=== PATIENT | female | born 1965 | race Caucasian/White ===

== ENCOUNTER 2019-05-23 14:41 | Emergency (ER) | payer OTHER ==
--- NOTE | 2019-05-23 14:57 | EDM.PDOC ---
ED HPI GENERAL MEDICAL PROBLEM - General Chief Complaint: Lower Extremity Injury/Pain Stated Complaint: POSSIBLE BROKEN RT ANKLE Time Seen by Provider: 05/23/19 14:45 Source of Information: Reports: Patient History Limitations: Reports: No Limitations - History of Present Illness INITIAL COMMENTS - FREE TEXT/NARRATIVE: Patient states approximately 45 minutes ago she stepped off an uneven sidewalk rolling her left ankle inward she states she is not able bear weight after has pain to the outside ankle now possibly a 6 out of 10 throbbing she denies any numbness tingling loss of sensation or discoloration or coldness Onset: Today Duration: Minutes: Quality: Reports: Throbbing Severity: Moderate Left Ankle Pain Score (Numeric/FACES): 7 - Related Data Allergies Allergy/AdvReac Type Severity Reaction Status Date / Time cephalexin Allergy Unknown Other Verified 05/23/19 15:10 Review of Systems - Review of Systems Review Of Systems: See Below Musculoskeletal: Reports: Joint Pain, Joint Swelling. Denies: Neck Pain, Back Pain, Leg Pain, Foot Pain Skin: Reports: No Symptoms. Denies: Cyanosis Neurological: Reports: No Symptoms. Denies: Numbness, Tingling, Weakness Psychiatric: Reports: No Symptoms ED EXAM, GENERAL - Physical Exam Exam: See Below Exam Limited By: No Limitations General Appearance: Alert, WD/WN, No Apparent Distress Extremities: Normal Capillary Refill, Other (Exam of the left ankle she has positive dorsalis pedis posterior tibialis pulses normal Refill equal soft touch sensation she has no tenderness to palpation over the fifth metatarsal medial malleolus navicular positive tenderness to palpation with edema to the lateral malleolus she has normal plantar flexion and dorsiflexion she has no tenderness palpation over the tibial plateau area). No: Non-Tender Neurological: Alert, Oriented, CN II-XII Intact, Normal Cognition Psychiatric: Normal Affect, Normal Mood Skin Exam: Warm, Dry, Intact, Normal Color, No Rash Course - Vital Signs Text/Narrative:: [place] positive will patient states she does not want any medicine at this time x-ray the patient with a 3 view ankle x-ray X-ray no acute findings noted no fractures Last Recorded V/S: Last Vital Signs Temp 36.6 C 05/23/19 14:45 Pulse 81 05/23/19 14:45 Resp 18 05/23/19 14:45 BP 149/87 H 05/23/19 14:45 Pulse Ox 94 L 05/23/19 14:45 Departure - Departure Time of Disposition: 15:45 Disposition: Home, Self-Care 01 Condition: Good Clinical Impression: Left ankle sprain - Discharge Information *PRESCRIPTION DRUG MONITORING PROGRAM REVIEWED*: No *COPY OF PRESCRIPTION DRUG MONITORING REPORT IN PATIENT RUDY: No Referrals: PCP,Not In Area [Primary Care Provider] - Forms: ED Department Discharge Additional Instructions: Apply ice to the area 30-45 minutes on 30- 45 minutes off next 24-48 hrs. may take [id number] Tylenol or Motrin as directed follow directions on the box Return to the emergency room if anything changes or gets worse such as numbness tingling loss of sensation discoloration or coldness to the leg foot ankle follow-up with her primary care provider next 2-3 days - Problem List & Annotations (1) Left ankle sprain SNOMED Code(s): 28559575, [id number] Code(s): S93.402A - SPRAIN OF UNSPECIFIED LIGAMENT OF LEFT ANKLE, INIT ENCNTR Status: Acute
--- NOTE | 2019-05-23 15:39 | CR ---
[id number] RAD/RAD Ankle Left 3V Min EXAM: 3 VIEWS LEFT ANKLE. INDICATION: TRAUMA. COMPARISON: None. DISCUSSION: There is a well-corticated osseous structure adjacent to the lateral cuboid which may represent old avulsion fracture versus accessory ossicle. No definite acute fractures identified. Associated soft tissue edema adjacent to the lateral malleolus. Small left ankle joint effusion. [id number] degenerative changes seen throughout the left foot and ankle. Enthesopathic change at the Achilles insertion. Small plantar calcaneal spur. IMPRESSION: 1. No definite acute osseous abnormalities. Soft tissue edema adjacent to the left lateral malleolus. Rosalino Jacome DO 05/23/19 1537 Thank you for allowing us to participate in the care of your patient.
== END 2019-05-23 16:25 | disposition home or self-care (01) ==
LOC: VM.ED 14:41
DX: S93.402A Sprain of unspecified ligament of left ankle, initial encounter (principal); X58.XXXA Exposure to other specified factors, initial encounter
CPT/HCPCS: 73610-LT; 99283-25; 99283-GF